=== PATIENT | male | born 1945 | race Caucasian/White ===

== ENCOUNTER 2017-02-23 23:42 | Inpatient (IN) | payer OTHER, MEDICARE ==
[2017-02-23] MEDS: HEPARIN SODIUM - SQ 10,000 UNITS/ML VIAL SQ SCH (22:00)
[~2017-02-23 23:42] MED LIST: ADVA230A INH; ALBU0.63 NEB; ALBUAER3 INH; BENZ1CAP54 PO; OSEL75 PO; RESP: ALBUTEROL 2.5 MG/IPRATROPIUM 0.5 MG NEB (PRN) INH; SODIUM CHLORIDE 0.9% FLUSH 10 ML FLUSH IV FLUSH PRN; cefTRIAXone INJ 1,000 MG in SODIUM CHLORIDE 0.9% INJ 100 ML IV SCH
[2017-02-24] VITALS: BP 137/68; PULSE 75; RESP 16; TEMP 98.3; O2SAT 94
[2017-02-24 00:25] VITALS: O2SAT 95
[2017-02-24 04:00] VITALS: BP 126/74; PULSE 71; RESP 18; TEMP 97.6; O2SAT 95
[2017-02-24] MEDS ORDERED: guaiFENesin/DEXTROMETHORPHAN 200 MG/20 MG/10 ML CUP PO PRN (07:30)
[2017-02-24] MEDS ORDERED: CALCIUM CARBONATE 500 MG CHEWABLE TAB CHEW PRN (07:30)
[2017-02-24] MEDS ORDERED: DOCUSATE SODIUM 100 MG CAP PO PRN (07:30)
[2017-02-24] MEDS ORDERED: ACETAMINOPHEN 325 MG TAB PO PRN (07:30)
[2017-02-24] MEDS ORDERED: RESP: ALBUTEROL 2.5 MG/IPRATROPIUM 0.5 MG NEB (PRN) NEB (07:30)
[2017-02-24] MEDS ORDERED: TEMAZEPAM 15 MG CAP PO PRN (07:30)
[2017-02-24] MEDS ORDERED: MAGNESIUM HYDROXIDE SUSP 30 ML CUP PO PRN (07:30)
[2017-02-24] MEDS ORDERED: ONDANSETRON HCL 4 MG/2 ML VIAL IV PUSH PRN (07:30)
[2017-02-24 08:00] VITALS: BP 133/75; PULSE 71; RESP 20; TEMP 98.2; O2SAT 98
[2017-02-24] MEDS ORDERED: RESP: ALBUTEROL 2.5 MG/IPRATROPIUM 0.5 MG NEB (SCH) NEB (08:00)
[2017-02-24 08:06] LABS: AUTOMATED NEUTROPHIL # 10.8 TH/MM3 (1.8-7.7); BASOPHIL % 0.3 % (0.0-2.0); EOSINOPHIL % 0.1 % (0.0-4.0); LYMPH % 6.3 % (9.0-44.0); LYMPHOCYTE # 0.8 TH/MM3 (1.0-4.8); MEAN CORPUSCULAR HEMOGLOBIN 30.6 PG (27.0-34.0); MEAN CORPUSCULAR HGB CONC 33.3 % (32.0-36.0); MONO % 3.1 % (0.0-8.0); NEUT % 90.2 % (16.0-70.0); PLATELET COUNT 218 TH/MM3 (150-450); RED BLOOD COUNT 4.78 MIL/MM3 (4.50-5.90); RED CELL DISTRIBUTION WIDTH 12.2 % (11.6-17.2)
[2017-02-24 08:18] LABS: CHLORIDE 100 MEQ/L (98-107); POTASSIUM 4.2 MEQ/L (3.5-5.1); SODIUM (NA) 134 MEQ/L (136-145)
[2017-02-24 08:19] LABS: HEMO FLAGS DIFF FINAL
[2017-02-24 08:22] LABS: ANION GAP 8 MEQ/L (5-15); BICARBONATE 25.8 MEQ/L (21.0-32.0); BLOOD UREA NITROGEN 21 MG/DL (7-18)
[2017-02-24 08:25] LABS: ALT (GPT) 62 U/L (12-78); AST (GOT) 42 U/L (15-37); GLOMERULAR FILTRATION RATE 66 ML/MIN (>89)
[2017-02-24 08:27] LABS: TOTAL BILIRUBIN ADULT 0.5 MG/DL (0.2-1.0)
[2017-02-24 08:28] LABS: ALKALINE PHOSPHATASE 82 U/L (45-117)
[2017-02-24] MEDS ORDERED: OSELTAMIVIR PHOSPHATE 75 MG CAP PO SCH (09:00)
[2017-02-24] MEDS ORDERED: AZITHROMYCIN 250 MG TAB PO SCH (09:00)
[2017-02-24] MEDS ORDERED: SODIUM CHLORIDE 0.9% FLUSH 10 ML FLUSH IV FLUSH SCH (09:00)
[2017-02-24] MEDS: HEPARIN SODIUM - SQ 10,000 UNITS/ML VIAL SQ SCH (09:01)
--- NOTE | 2017-02-24 09:39 | HHI.HP ---
[facility] Unknown Admission Diagnosis Diagnoses: (1) Community acquired pneumonia Diagnosis: Principal Chief Complaint: Cough, congestion Travel History International Travel<30 Days: Yes Contact w/Intl Traveler <30 Da: Yes Name of Country Traveled to: [facility], [place], [facility] Traveled to Known Affected Are: No History of Present Illness 71-year-old male with known history of asthma who presented to the hospital because of cough, congestion. Patient states that his was sick last week and then on he started developing upper respiratory symptoms to include fever, chills, cough, congestion. Patient went to his primary medical doctor on Saturday and was diagnosed with the flu and started on Tamiflu. The patient did not improve and continued with chest congestion, nonproductive cough and so he went to the emergency department yesterday for further evaluation. Patient had workup done emergency department and chest x-ray did indicate left lower lung infiltrate. O2 saturation documented by ER physician was 91% on room air. Patient was placed on oxygen with significant improvement of his oxygenation to 95%. Because of that reason it was recommended by the ER physician the patient be observed in the hospital for further evaluation and management. Upon evaluating the patient he is doing well. Still have some cough, he is now able to expectorate phlegm. Patient's O2 saturation is now 98 % on room air. Patient denies any recurrent fever, chills, chest pain, shortness of breath, nausea, vomiting, diaphoresis. Review of Systems Constitutional: COMPLAINS OF: Fever, Chills Respiratory: COMPLAINS OF: Cough, Sputum production Except as stated in HPI: all other systems reviewed are Neg Past Family Social History Past Medical History Asthma Recently diagnosed influenza Past Surgical History Left wrist surgery Appendectomy Reported Medications Reported Meds & Active Scripts Active Reported Albuterol Neb (Albuterol Sulfate) 0.63 Mg/3 Ml Neb 0.63 Mg NEB Q4HR NEB PRN Advair Hfa 12 GM Inh (Fluticasone-Salmeterol 12 GM Inh) 230-21 Mcg/Act Aer 2 Puff INH BID Proair Hfa 8.5 GM Inh (Albuterol Sulfate) 90 Mcg/Act Aer 2 Puff INH Q4-6H PRN 108 mcg/actuation Benzonatate 100 Mg Cap 100 Mg PO TID PRN Tamiflu (Oseltamivir Phosphate) 75 Mg Cap 75 Mg PO BID Allergies: Coded Allergies: No Known Drug Allergies (Verified Allergy, Unknown, 02/23/17) Family History Reviewed is significant for mother 91 years old and in good health. Father at age 55 with myocardial infarction Social History Patient states that he smoked for approximately 2 years when he was a teenager. Otherwise he does not use tobacco at this time, no indication of alcohol or illicit drugs Physical Exam Vital Signs Vital Signs Date Time Temp Pulse Resp B/P (MAP) Pulse Ox O2 Delivery O2 Flow Rate FiO2 02/24/17 08:00 98.2 71 20 133/75 (94) 98 02/24/17 07:44 Nasal Cannula 2.00 02/24/17 04:00 97.6 71 18 126/74 (91) 95 02/24/17 00:25 95 Nasal Cannula 2.00 02/24/17 00:00 98.3 75 16 137/68 (91) 94 Physical Exam GENERAL: Well-developed, well-nourished, in no acute distress. alert and orientated HEENT: Head is normocephalic without any lesions or masses noted. Facial features are symmetric. Eyes: Pupils equal round reactive to light. Extraocular muscles are intact. Conjunctivae were clear. Oropharyngeal: Pharynx without any erythema edema. Tongue is midline without deviation. Buccal mucosa is moist without any masses or lesions NECK: Supple without any masses. Trachea midline no deviation. No JVD, no bruits are appreciated CARDIAC: Regular rhythm, regular rate. S1/S2 are heard. No murmurs gallops or rubs. LUNGS: Patient with scattered upper airway wheeze and rhonchi noted significantly improved after nebulizer treatment, no rales. No use of accessory muscles on inspiration or expiration. ABDOMEN: Soft, nontender. Nondistended. Bowel sounds heard in all 4 quadrants. No organomegaly or masses. Negative rebound, negative guarding EXTREMITIES: No edema, pulses are equal bilaterally. No cyanosis or clubbing NEUROLOGY: Mood and affect appear appropriate. Cranial nerves II through XII grossly intact. Muscle strength 5/5 in upper and lower extremities bilaterally. Deep tendon reflexes are 2+ in upper and lower extremities bilaterally. Laboratory Laboratory Tests Test 02/24/17 08:03 White Blood Count 12.0 Red Blood Count 4.78 Hemoglobin 14.6 Hematocrit 44.0 Mean Corpuscular Volume 92.0 Mean Corpuscular Hemoglobin 30.6 Mean Corpuscular Hemoglobin Concent 33.3 Red Cell Distribution Width 12.2 Platelet Count 218 Mean Platelet Volume 9.5 Neutrophils (%) (Auto) 90.2 Lymphocytes (%) (Auto) 6.3 Monocytes (%) (Auto) 3.1 Eosinophils (%) (Auto) 0.1 Basophils (%) (Auto) 0.3 Neutrophils # (Auto) 10.8 Lymphocytes # (Auto) 0.8 Monocytes # (Auto) 0.4 Eosinophils # (Auto) 0.0 Basophils # (Auto) 0.0 CBC Comment DIFF FINAL Differential Comment Blood Urea Nitrogen 21 Creatinine 1.10 Random Glucose 153 Total Protein 7.7 Albumin 2.7 Calcium Level 8.9 Alkaline Phosphatase 82 Aspartate Amino Transf (AST/SGOT) 42 Alanine Aminotransferase (ALT/SGPT) 62 Total Bilirubin 0.5 Sodium Level 134 Potassium Level 4.2 Chloride Level 100 Carbon Dioxide Level 25.8 Anion Gap 8 Estimat Glomerular Filtration Rate 66 Lactic Acid Level 1.9 Result Diagram: 02/24/1780202/24/17802 Imaging Chest x-ray shows mild patchy infiltrate left lower lung Caprini VTE Risk Assessment Caprini VTE Risk Assessment: Mod/High Risk (score >= 2) Caprini Risk Assessment Model Point Value = 1 Point Value = 2 Point Value = 3 Point Value = 5 Age 41-60 Minor surgery BMI > 25 kg/m2 Swollen legs Varicose veins or History of unexplained or recurrent spontaneous Oral contraceptives or hormone replacement Sepsis (< 1 month) Serious lung disease, including pneumonia (< 1 month) Abnormal pulmonary function Acute myocardial infarction Congestive heart failure (< 1 month) History of inflammatory bowel disease Medical patient at bed rest Age 61-74 Arthroscopic surgery Major open surgery (> 45 min) Laparoscopic surgery (> 45 min) Malignancy Confined to bed (> 72 hours) Immobilizing plaster cast Central venous access Age >= 75 History of VTE Family history of VTE Factor V Leiden Prothrombin [id number] Lupus anticoagulant Anticardiolipin antibodies Elevated serum homocysteine Heparin-induced thrombocytopenia Other congenital or acquired thrombophilia Stroke (< 1 month) Elective arthroplasty Hip, pelvis, or leg fracture Acute spinal cord injury (< 1 month) Prophylaxis Regimen Total Risk Factor Score Risk Level Prophylaxis Regimen 0-1 Low Early ambulation 2 Moderate Order ONE of the following: *Sequential Compression Device (SCD) *Heparin 5000 units SQ BID 3-4 Higher Order ONE of the following medications: *Heparin 5000 units SQ TID *Enoxaparin/Lovenox 40 mg SQ daily (WT < 150 kg, CrCl > 30 mL/min) *Enoxaparin/Lovenox 30 mg SQ daily (WT < 150 kg, CrCl > 10-29 mL/min) *Enoxaparin/Lovenox 30 mg SQ BID (WT < 150 kg, CrCl > 30 mL/min) AND/OR *Sequential Compression Device (SCD) 5 or more Highest Order ONE of the following medications: *Heparin 5000 units SQ TID (Preferred with Epidurals) *Enoxaparin/Lovenox 40 mg SQ daily (WT < 150 kg, CrCl > 30 mL/min) *Enoxaparin/Lovenox 30 mg SQ daily (WT < 150 kg, CrCl > 10-29 mL/min) *Enoxaparin/Lovenox 30 mg SQ BID (WT < 150 kg, CrCl > 30 mL/min) AND *Sequential Compression Device (SCD) Assessment and Plan Assessment and Plan Community-acquired pneumonia Continue O2 supplementation maintain O2 sats greater than 92% Patient started on Rocephin and Zithromax for antibiotic treatment Patient was given Solu-Medrol 125 mg IM Give Solu-Medrol 60 mg IV 1 Start duo nebs every 6 hours and every 2 hours as needed Start Robitussin-DM every 4 hours Start incentive spirometry Influenza infection per patient by outpatient testing Continue Tamiflu DVT prevention Subcutaneous heparin Discharge disposition Discharge home in stable condition if continues to clinically improve Activity: Ad crys. Diet: Regular diet Medications per medication reconciliation Follow-up primary medical doctor in one week Problem Qualifiers (1) Community acquired pneumonia: Qualified Codes: J18.1 - Lobar pneumonia, unspecified organism Noé Dang Feb 24, 2017 09:39
[2017-02-24] MEDS ORDERED: AZIT250T3 PO (09:44)
[2017-02-24] MEDS ORDERED: CEFU1TAB18 PO (09:44)
[2017-02-24] MEDS ORDERED: DEXT10SY2 PO (09:44)
--- NOTE | 2017-02-24 09:44 | HHI.DCPOC ---
Discharge Care Plan Diagnosis: (1) Community acquired pneumonia Goals to Promote Your Health * To prevent worsening of your condition and complications * To maintain your health at the optimal level Directions to Meet Your Goals Take your medications as prescribed Follow your dietary instruction Follow activity as directed Keep your appointments as scheduled Take your immunizations and boosters as scheduled If your symptoms worsen call your PCP, if no PCP go to Urgent Care Center or Emergency Room Smoking is Dangerous to Your Health. Avoid second hand smoke Call the 24-hour hour crisis hotline for domestic abuse at Noé Dang Feb 24, 2017 09:44
[2017-02-24] MEDS ORDERED: MEDR4PAK PO (11:21)
[2017-02-24 11:25] VITALS: O2SAT 93
[2017-02-24 12:00] VITALS: BP 137/69; PULSE 83; RESP 18; TEMP 97.4; O2SAT 95
[2017-02-24] MEDS ORDERED: methylPREDNISolone SOD SUCC 125 MG/2 ML VIAL IV PUSH ONE (12:00)
[2017-02-24] MEDS ORDERED: Albuterol-Ipratropium Neb NEB (12:44)
== END 2017-02-24 13:23 | disposition home or self-care (01) | DRG 195 ==
LOC: PHEDDLT 23:42 → PH3A 23:44 → OBSVTOIN 23:44
PROVIDERS: ADMIT Hospitalist; ATTEND Hospitalist
DX: J11.00 Influenza due to unidentified influenza virus with unspecified type of pneumonia (principal); J45.909 Unspecified asthma, uncomplicated; Z87.891 Personal history of nicotine dependence
CPT/HCPCS: 71010; 80053; 83605; 85025; 87040; 87070; 87205; 94150; 94640; 94664; 96365; 96366; 96367; 96372; J0456; J0696; J1644; J2930; J7050